=== PATIENT | male | born 1955 | race Asian ===

== ENCOUNTER 2021-03-28 13:14 | Inpatient (IN) | payer OTHER ==
[~2021-03-28] VITALS: Ht 172.7 cm; Wt 122.1 kg
--- NOTE | 2021-03-28 21:57 | EKG ---
[facility] [address] [facility] [place], [place] [address] Signed Normal sinus rhythm Right bundle branch block Inferior infarct , age undetermined Abnormal ECG No previous ECGs available Confirmed by AMADO CRESPO MD ([id number]) on 03/28/2021 9:57:26 PM Electronically Signed By: AMADO CRESPO MD 03/28/21 2157 PATIENT NAME: ROSALIE BETANCUR ROLA Electrocardiogram DATE OF : 59 PHYSICIAN: AMADO CRESPO MD REPORT #: [id number] REPORT IS CONFIDENTIAL AND NOT TO BE RELEASED WITHOUT AUTHORIZATION
[2021-03-29] MEDS ORDERED: LISINOPRIL-HCT1 EAC1 PO (13:18)
--- NOTE | 2021-04-01 02:27 | EKG ---
[facility] [address] [place] [address] Signed Wide QRS tachycardia Right bundle branch block T wave abnormality, consider inferior ischemia Abnormal ECG When compared with ECG of 28-MAR-2021 14:04, Wide QRS tachycardia has replaced Sinus rhythm Vent. rate has increased BY 72 BPM Confirmed by AMADO CRESPO MD ([id number] on 04/01/2021 2:27:43 AM Electronically Signed By: AMADO CRESPO MD 04/01/21 0227 PATIENT NAME: PIPEROSALIE RAY Electrocardiogram DATE OF : 59 PHYSICIAN: AMADO CRESPO MD REPORT #: [id number] REPORT IS CONFIDENTIAL AND NOT TO BE RELEASED WITHOUT AUTHORIZATION
--- NOTE | 2021-04-01 02:28 | EKG ---
[facility] [address] [place] [address] Signed Normal sinus rhythm Right bundle branch block Possible Inferior infarct , age undetermined Abnormal ECG When compared with ECG of 31-MAR-2021 14:08, (Unconfirmed) Sinus rhythm has replaced Wide QRS tachycardia Vent. rate has decreased BY 65 BPM Confirmed by AMADO CRESPO MD ([id number] on 04/01/2021 2:27:53 AM Electronically Signed By: AMADO CRESPO MD 04/01/21 0228 PATIENT NAME: ROSALIE BETANCUR ROLA Electrocardiogram DATE OF : 59 PHYSICIAN: AMADO CRESPO MD REPORT #: [id number] REPORT IS CONFIDENTIAL AND NOT TO BE RELEASED WITHOUT AUTHORIZATION
== END 2021-04-10 05:42 | DRG 177 ==
LOC: ED 13:14 → CCU 17:10
PROVIDERS: ADMIT Internal Medicine; ATTEND Internal Medicine
PROC: 5A0955A Assistance with Respiratory Ventilation, Greater than 96 Consecutive Hours, High Flow/Velocity Cannula (ICD-10-PCS; principal; 2021-03-28)
PROC: 5A09557 Assistance with Respiratory Ventilation, Greater than 96 Consecutive Hours, Continuous Positive Airway Pressure (ICD-10-PCS; 2021-03-28)
PROC: 8E0ZXY6 Isolation (ICD-10-PCS; 2021-03-28)
PROC: XW033E5 Introduction of Remdesivir Anti-infective into Peripheral Vein, Percutaneous Approach, New Technology Group 5 (ICD-10-PCS; 2021-03-28)
PROC: 3E0333Z Introduction of Anti-inflammatory into Peripheral Vein, Percutaneous Approach (ICD-10-PCS; 2021-03-28)
DX: U07.1 COVID-19 (principal); J12.82 Pneumonia due to coronavirus disease 2019; J96.01 Acute respiratory failure with hypoxia; D65 Disseminated intravascular coagulation [defibrination syndrome]; M62.82 Rhabdomyolysis; I47.1 Supraventricular tachycardia; I74.19 Embolism and thrombosis of other parts of aorta; I10 Essential (primary) hypertension; C61 Malignant neoplasm of prostate; F41.8 Other specified anxiety disorders; G47.00 Insomnia, unspecified; E66.9 Obesity, unspecified; E11.9 Type 2 diabetes mellitus without complications; Z79.899 Other long term (current) drug therapy
CPT/HCPCS: 36569; 36600; 71045; 71260; 71275; 74174; 80053; 80202; 81001; 82553; 82803; 83605; 83735; 83880; 84484; 85007; 85025; 85730; 87040; 93005; 93010; 93306; 94640; 94660; 94799; 96374; 96375; 97110; 97162; 99285-25; A9270; C1751; C9803; J0153; J0171; J0456; J0692; J0696; J1100; J1644; J1650; J1815; J1885; J1940; J2270; J2405; J2920; J3370; J3475; J7030; J7050; J7060; J7121; Q0177; Q9957; Q9967; U0003